=== PATIENT | female | born 1970 | race Caucasian/White ===

== ENCOUNTER 2017-12-30 09:13 | Outpatient (CLI) | payer BC ==
[2017-12-30 18:20] LABS: CHOL/HDL RATIO 4.4 (<4.4); CHOLESTEROL 290 mg/dL; HDL CHOLESTEROL 66 mg/dL; LDL CHOLESTEROL,CALCULATED 199 mg/dL; VLDL CHOLESTEROL 25 mg/dL
== END 2017-12-30 09:14 | disposition home or self-care (01) ==
LOC: LAB.F 09:13
PROVIDERS: ATTEND Family Medicine
DX: E78.5 Hyperlipidemia, unspecified (principal)
CPT/HCPCS: 36415; 80061; 83721